=== PATIENT | female | born 1955 | race Caucasian/White ===

== ENCOUNTER 2019-09-11 05:42 | Inpatient (IN) | payer MEDICARE, OTHER ==
[2019-09-06 13:34] LABS: ABSOLUTE BASOPHILS # (AUTO) 0.1 10^3/uL (0.0-0.2); ABSOLUTE EOSINOPHILS # (AUTO) 0.2 10^3/uL (0.0-0.6); ABSOLUTE LYMPHOCYTES (AUTO) 1.5 10^3/uL (0.5-4.7); ABSOLUTE MONOCYTES (AUTO) 0.4 10^3/uL (0.1-1.4); ABSOLUTE NEUT (AUTO) 3.2 10^3/uL (1.7-8.2); BASOPHILS % (AUTO) 1.1 % (0-2); EOSINOPHILS % (AUTO) 3.1 % (0-6); HEMATOCRIT 40.8 % (36.0-47.0); HEMOGLOBIN 13.6 g/dL (12.0-15.5); MEAN CORPUSCULAR HEMOGLOBIN 29.9 pg (27.0-33.4); MEAN CORPUSCULAR HGB CONC 33.4 g/dL (32.0-36.0); MEAN CORPUSCULAR VOLUME 90 fl (80-97); MONOCYTES % (AUTO) 8.3 % (3-13); PLATELET COUNT 350 10^3/uL (150-450); RED BLOOD COUNT 4.56 10^6/uL (3.72-5.28); RED CELL DISTRIBUTION WIDTH 13.1 % (11.5-14.0); SEGMENTED NEUTROPHILS % (AUTO) 59.5 % (42-78); TOTAL CELLS COUNTED % (AUTO) 100 %; WHITE BLOOD COUNT 5.3 10^3/uL (4.0-10.5)
[2019-09-06 13:55] LABS: ANION GAP 8 (5-19); BLOOD UREA NITROGEN 21 mg/dL (7-20); CALCIUM 10.1 mg/dL (8.4-10.2); CARBON DIOXIDE 27 mmol/L (22-30); CHLORIDE 102 mmol/L (98-107); GLUCOSE 88 mg/dL (75-110); POTASSIUM 4.8 mmol/L (3.6-5.0)
[~2019-09-11 05:42] MED LIST: CEFAZOLIN 2 GM/D5W RTU 2 GM/50 ML RTUPB IV PRN; CEFAZOLIN SODIUM 2 GM in DEXTROSE 5%-WATER 100 ML IV PRN; LACTATED RINGERS 1000 ML IV PRN; LIDOCAINE 0.5% INJ-PF (5 MG/ML) 50 ML SDV SUBCUT PRN
[2019-09-11] MEDS ORDERED: CEFAZOLIN INJ 1 GM VIAL ONE (06:45)
[2019-09-11] MEDS ORDERED: CEFAZOLIN 1 GM/D5W RTU 1 GM/50 ML RTUPB IV ONE (06:45)
[2019-09-11] MEDS ORDERED: LIDOCAINE 2% INJ (20 MG/ML) 20 ML MDV ONE (07:00)
[2019-09-11] MEDS ORDERED: BACITRACIN INJ 50,000 UNIT VIAL ONE (07:01)
[2019-09-11] MEDS ORDERED: HEPARIN SOD (PORCINE) 1,000 UNIT/ML 10 ML VIAL ONE (07:01)
[2019-09-11] MEDS ORDERED: BUPIVACAINE INJ/PF LIPOSOME/PF 266 MG/20 ML SDV ONE (07:01)
[2019-09-11] MEDS ORDERED: MINERAL OIL (STERILE) 10 ML VIAL ONE (07:01)
[2019-09-11] MEDS ORDERED: MIDAZOLAM 2 MG/2 ML INJ ONE (07:02)
[2019-09-11] MEDS ORDERED: HYDROMORPHONE HCL INJ/PF 2 MG/ML AMPULE ONE (07:02)
[2019-09-11] MEDS ORDERED: FENTANYL CITRATE INJ/PF 100 MCG/2 ML AMPUL ONE (07:02)
[2019-09-11] MEDS ORDERED: PROPOFOL INJ 200 MG/20 ML VIAL IV ONE (07:03)
[2019-09-11] MEDS ORDERED: DIAZEPAM 5 MG TABLET ONE (07:12)
[2019-09-11] MEDS ORDERED: SCOPOLAMINE HYDROBROMIDE 1.5 MG PATCH.TD72 ONE ×2 (07:13→07:23)
[2019-09-11] MEDS ORDERED: DIAZEPAM 5 MG TABLET PO PRN ×2 (07:17→07:56)
[2019-09-11] MEDS ORDERED: SCOPOLAMINE HYDROBROMIDE 1.5 MG PATCH.TD72 TD PRN (07:18)
[2019-09-11] MEDS ORDERED: PROMETHAZINE HCL INJ 25 MG/1 ML VIAL ONE (07:23)
[2019-09-11] MEDS ORDERED: DIPHENHYDRAMINE HCL 25 MG CAPSULE PO PRN (07:56)
[2019-09-11] MEDS ORDERED: MORPHINE SULFATE 10 MG/ML INJ IV PRN ×2 (07:56→08:43)
[2019-09-11] MEDS ORDERED: MAGNESIUM HYDROXIDE SUSP 30 ML UDCUP PO PRN (07:56)
[2019-09-11] MEDS ORDERED: ONDANSETRON HCL INJ/PF 4 MG/2 ML SDV IV PRN (07:56)
[2019-09-11] MEDS ORDERED: DIPHENHYDRAMINE HCL 50 MG/ML VIAL IV PRN ×2 (07:56→08:43)
[2019-09-11] MEDS ORDERED: PROMETHAZINE HCL 25 MG TABLET PO PRN (07:56)
[2019-09-11] MEDS ORDERED: METHOCARBAMOL 750 MG TABLET PO PRN (07:56)
[2019-09-11] MEDS ORDERED: ACETAMINOPHEN 650 MG SUPP.RECT PR PRN (07:56)
[2019-09-11] MEDS ORDERED: RINGERS SOLUTION,LACTATED 1,000 ML IV PRN (07:56)
[2019-09-11] MEDS ORDERED: PROMETHAZINE HCL INJ 25 MG/1 ML VIAL IM PRN (07:56)
[2019-09-11] MEDS ORDERED: OXYCODONE-ACETAMINOPHEN 5-325 MG TABLET PO PRN (07:56)
[2019-09-11] MEDS ORDERED: GLYCOPYRROLATE 1 MG/5 ML VIAL ONE (08:18)
[2019-09-11] MEDS ORDERED: ROCURONIUM BROMIDE INJ 50 MG/5 ML VIAL IV ONE (08:18)
[2019-09-11] MEDS ORDERED: DEXAMETHASONE SOD PHOSPHATE INJ 4 MG/1 ML VIAL ONE (08:18)
[2019-09-11] MEDS ORDERED: PROPOFOL 2,000 MG/200 ML INFUS..BTL IV ONE (08:18)
[2019-09-11] MEDS ORDERED: ONDANSETRON HCL INJ/PF 4 MG/2 ML SDV ONE (08:18)
[2019-09-11] MEDS ORDERED: PHENYLEPHRINE HCL INJ/PF 10 MG/1 ML SDV ONE (08:18)
[2019-09-11] MEDS ORDERED: SUCCINYLCHOLINE CHLORIDE INJ 200 MG/10 ML VIAL ONE (08:18)
[2019-09-11] MEDS ORDERED: MEPERIDINE HCL/PF INJ 25 MG/1 ML DISP.SYRIN IV PRN (08:43)
[2019-09-11] MEDS ORDERED: FENTANYL CITRATE INJ/PF 100 MCG/2 ML AMPUL IV PRN ×3 (08:43)
[2019-09-11] MEDS ORDERED: METHOCARBAMOL INJ/PF 1000 MG/10 ML SDV ONE (12:58)
--- NOTE | 2019-09-11 13:07 | Operative Report ---
Operative Report DATE OF SURGERY: 09/11/19 PREOPERATIVE DIAGNOSIS: L4-5 and L5-S1 and L3-4 instability and spondylolisthes is. Back pain. 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 Lumbar radiculitis L4-5 and L5-S1 POSTOPERATIVE DIAGNOSIS: L4-5 and L5-S1 and L3-4 instability and spondylolisthesis. Back pain. 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 Lumbar radiculitis L4-5 and L5-S1 OPERATION: L3-4 L4-5 L5-S1 anterior lateral interbody spacer placement robotically assisted and L3-4 L4-5 and L5-S1 robotically assisted posterior fusion and instrumentation. Left iliac crest aspiration through a separate incision for bone marrow aspirate concentration to be used in interbody spaces with allograft. SURGEON: MARLON DEVINE 1ST DIRECTOR TARGETED MARKETING: CECE JOYNER ANESTHESIA: GA ESTIMATED BLOOD LOSS: 200 cc PROCEDURE: Patient is brought into the room placed under general anesthesia received 2 g of Ancef within 1 hour of cut time was placed on the Coy table medial epicondyles and axillary areas are well-padded. Neuro monitoring leads for SSEP and cranial motor testing are placed on the patient as well as a Villegas catheter is placed preoperatively. After appropriate surgical timeout the [employer] robot is utilized and on the right posterior superior iliac spine a pin is placed and attached to the robot. After obtaining registration imaging in the AP and oblique position and verification at L3 5.5 x 45 mm screws x2 and at L4 5.5 x 45 mm screws x2 at L5 6.5 x 45 mm screws x2 and at S1 6.5 x 35 mm screws x2 are inserted using portal incisions on the right and the left at L3 and L4 and L5 and S1 bilaterally. Left iliac crest is aspirated at 2 different sites total of 50 cc of bone marrow aspirate are obtained and concentrated to be used an interbody spacer with the allograft. Attention was then paid to the left sided anterior lateral portal for entry into the disc space which is carried out under navigation guidance upon verification also with x-rays and then stimulation thresholds greater than 17 mA. Upon inserting the portal into the disc space at L3-4 and L4-5 and L5-S1 fluoroscopy was used to verify the position as it did also to verify the screws position. Endplate nathaniel and curettes and brushes are used to carry out a complete discectomy then the verify balloon is inserted to verify good contact with the endplates. Incite cortical fibers/demineralized bone matrix with bone marrow aspirate concentrate are placed anterior in the disc space then the appropriate size mesh spacer is introduced into the interbody. The mesh spacer is soaked in bone marrow aspirate concentrate and is filled with bone graft showing good correction and good containment within the disc space at L3-4 and L4-5 and L5- S1. Upon neuro monitoring testing and cranial motor testing found to be stable then the portal is removed anterior laterally and attention is then paid to the placement of the rods upon using the caliper device the appropriate length rods were determined to be 100 mm rods on the right and on the left those are passed down and locked into position and final tightened. Then the tabs are removed and the portals are irrigated with copious amounts of irrigation and the posterior superior iliac spine pin connected to the robot is removed as well and the deep and superficial tissues were infiltrated with 1.3% Exparel 20 cc mixed with 20 cc of 0.5% bupivacaine plain. The portals are closed using 2-0 Vicryl and then Dermabond and Steri-Strips then 4 x 4's were used to cover the wounds on the right and the left and dressed with coverall tape. Please note that this procedure could not be done without the assistance of Julius Reed working to assist with the placement of the screws positioning of the robot carrying out the aspiration through the left side iliac crest aspiration please also note that the iliac crest aspiration is carried out on the left side through a separate incision. Julius Reed was instrumental throughout this whole process and I could not have done this procedure without his assistance as mentioned above.
--- NOTE | 2019-09-11 13:11 | RADIOLOGY REPORT (SQ) ---
EXAM DESCRIPTION: L SPINE 2 VIEWS; NO CHG FLUORO IMAGES COMPLETED DATE/TIME: 09/11/2019 1:00 pm REASON FOR STUDY: LUMBAR FUSION MULTIPLE LEVELS ASSISTED WITH FLUORO IN OR M54.16 RADICULOPATHY, YAZ MBAR REGION M51.26 OTHER INTERVERTEBRAL DISC DISPLACEMENT, LUMBAR REGION M54.5 LOW BACK PAIN COMPARISON: None. FLUOROSCOPY TIME: 3.9 minutes 3 digital fluoroscopic images saved to PACS. TECHNIQUE: Intra-operative images acquired during surgical procedure to evaluate progress. NUMBER OF IMAGES: 3 digital fluoroscopic images LIMITATIONS: None. FINDINGS: Intra procedural imaging and fluoro during lumbar fusion with hardware. Please see the op erative report for further details IMPRESSION: Intra procedural imaging and fluoro COMMENT: Quality ID [id number]: Final reports for procedures using fluoroscopy that document radiation exp osure indices, or exposure time and number of fluorographic images (if radiation exposure indices are not available) Please consult full operative report of the attending physician for description of the procedure. TECHNICAL DOCUMENTATION: JOB ID: [id number] 2010 [employer]- All Rights Reserved Reading location - IP/workstation name: [email or web address]
--- NOTE | 2019-09-11 13:11 | RADIOLOGY REPORT (SQ) ---
EXAM DESCRIPTION: L SPINE 2 VIEWS; NO CHG FLUORO IMAGES COMPLETED DATE/TIME: 09/11/2019 1:00 pm REASON FOR STUDY: LUMBAR FUSION MULTIPLE LEVELS ASSISTED WITH FLUORO IN OR M54.16 RADICULOPATHY, YAZ MBAR REGION M51.26 OTHER INTERVERTEBRAL DISC DISPLACEMENT, LUMBAR REGION M54.5 LOW BACK PAIN COMPARISON: None. FLUOROSCOPY TIME: 3.9 minutes 3 digital fluoroscopic images saved to PACS. TECHNIQUE: Intra-operative images acquired during surgical procedure to evaluate progress. NUMBER OF IMAGES: 3 digital fluoroscopic images LIMITATIONS: None. FINDINGS: Intra procedural imaging and fluoro during lumbar fusion with hardware. Please see the op erative report for further details IMPRESSION: Intra procedural imaging and fluoro COMMENT: Quality ID [id number]: Final reports for procedures using fluoroscopy that document radiation exp osure indices, or exposure time and number of fluorographic images (if radiation exposure indices are not available) Please consult full operative report of the attending physician for description of the procedure. TECHNICAL DOCUMENTATION: JOB ID: [id number] 2010 [employer]- All Rights Reserved Reading location - IP/workstation name: [email or web address]
[2019-09-11] MEDS ORDERED: CEFAZOLIN 2 GM/D5W RTU 2 GM/50 ML RTUPB IV SCH (14:00)
[2019-09-11] MEDS ORDERED: LEVOTHYROXINE SODIUM 100 MCG PO SCH (14:44)
[2019-09-11] MEDS ORDERED: LACTOBACILLUS RHAMNOSUS GG PO SCH (14:44)
[2019-09-11] MEDS: HYDROCODONE/ACETAMINOPHEN 5-325 MG TABLET PO PRN (17:25)
[2019-09-11] MEDS: CEFAZOLIN SODIUM 2 GM in DEXTROSE 5%-WATER 100 ML IV SCH (17:30)
[2019-09-11] MEDS: ASPIRIN 81 MG TABLET, ENT COATED PO SCH (17:31)
[2019-09-11] MEDS: SENNOSIDES/DOCUSATE 8.6-50 MG 1 EACH TABLET PO SCH (17:31)
[2019-09-11] MEDS: ACETAMINOPHEN 325 MG TABLET PO PRN (23:20)
[2019-09-12] MEDS: CEFAZOLIN SODIUM 2 GM in DEXTROSE 5%-WATER 100 ML IV SCH (02:00)
[2019-09-12] MEDS ORDERED: LEVOTHYROXINE SODIUM 0.1 MG TABLET PO SCH (06:00)
[2019-09-12] MEDS: HYDROCODONE/ACETAMINOPHEN 5-325 MG TABLET PO PRN ×2 (06:13→12:09)
--- NOTE | 2019-09-12 09:23 | PDOC PROGRESS REPORT ---
Subjective Progress Note for:: 09/12/19 Subjective:: Patient is lying in bed at time of exam. She reports that she is comfortable. Reports no problems with bowel or bladder function, reports that she is eating well, and drinking well. She reports that she was able to get up and work with PT with no increase in pain. Reason For Visit: M54.16 RADICULOPATHY, LUMBAR SERGO S/P Lumbar fusion Physical Exam Vital Signs: Temp Pulse Resp BP Pulse Ox 98.2 F 62 16 111/56 L 90 L 09/12/19 07:40 09/12/19 07:40 09/12/19 07:40 09/12/19 07:40 09/12/19 07:40 Intake & Output 09/11/19 09/12/19 09/13/19 06:59 06:59 06:59 Intake Total 2876 Output Total 970 Balance 1906 Weight 61.23 kg 61.23 kg General appearance: PRESENT: no acute distress, well-developed, well-nourished Head exam: PRESENT: atraumatic, normocephalic Eye exam: PRESENT: EOMI, PERRLA. ABSENT: scleral icterus Mouth exam: PRESENT: moist, tongue midline Neck exam: PRESENT: full ROM. ABSENT: carotid bruit, JVD, lymphadenopathy, thyromegaly Cardiovascular exam: PRESENT: RRR. ABSENT: diastolic murmur, rubs, systolic murmur Pulses: PRESENT: normal dorsalis pedis pul, +2 pedal pulses bilateral Vascular exam: PRESENT: normal capillary refill GI/Abdominal exam: PRESENT: soft. ABSENT: distended, guarding, mass, organolmegaly, rebound, tenderness Rectal exam: PRESENT: deferred Musculoskeletal exam: PRESENT: other - Back: Dressing is clean anad dry, normal post operative swelling and tenderness is noted. calves are soft and non-tender. moves legs without pain or difficulty. Neurological exam: PRESENT: alert, awake, oriented to person, oriented to place, oriented to time, oriented to situation, CN II-XII grossly intact. ABSENT: motor sensory deficit Psychiatric exam: PRESENT: appropriate affect, normal mood. ABSENT: homicidal ideation, suicidal ideation Skin exam: PRESENT: dry, intact, warm. ABSENT: cyanosis, rash Results Laboratory Results: 09/06/19 11:49 09/06/19 11:49 Impressions: Fluoroscopy 09/11/19 00:00 IMPRESSION: Intra procedural imaging and fluoro Lumbar Spine X-Ray 09/11/19 00:00 IMPRESSION: Intra procedural imaging and fluoro Assessment & Plan - Diagnosis (1) Fusion of lumbar spine Is this a current diagnosis for this admission?: Yes - Time Time Spent with patient: Less than 15 minutes - Plan Summary Plan Summary: Patient is doing well s/p lumbar fusion pod 1: Progress with PT per protocol and as tolerated Consider D/C home today if cleared Patient is taking oxycodone and Tylenol for pain.
[2019-09-12] MEDS: ASPIRIN 81 MG TABLET, ENT COATED PO SCH (09:59)
[2019-09-12] MEDS: SENNOSIDES/DOCUSATE 8.6-50 MG 1 EACH TABLET PO SCH (09:59)
[2019-09-12] MEDS ORDERED: LACTOBACILLUS ACIDOPHILUS 250 MG TAB PO SCH (10:00)
[2019-09-12 11:50] VITALS: BP 117/56
[2019-09-12] MEDS: ACETAMINOPHEN 325 MG TABLET PO PRN (13:59)
--- NOTE | 2019-09-12 15:00 | PDOC DISCHARGE SUMMARY ---
Impression - Admit/DC Date/PCP Admission Date/Primary Care Provider: 09/11/19 05:42 TORI MALAVE MD Discharge Date: 09/12/19 - D/c sooner than expected d/t pt exceeding recovery expectations and requesting to go home early. - Discharge Diagnosis (1) Lumbar radiculitis Is this a current diagnosis for this admission?: Yes (2) Fusion of lumbar spine Is this a current diagnosis for this admission?: Yes (3) Low back pain Is this a current diagnosis for this admission?: Yes (4) Spondylolisthesis, lumbar region Is this a current diagnosis for this admission?: Yes (5) S/P lumbar fusion Is this a current diagnosis for this admission?: Yes - Assessment Summary: Procedure carried out as planned. w/o complication. Admitted to surgical POD# 0 and had an uneventful admission displaying ability to care for herself after working with PT and nursing. Will be dishcarged today to home in good condition with her . Discharge instruction and spinal percautions reviewed with pt and pt. displayed understanding. Pt to f/u with Dr. Devine in 7-14 days post op with prescheduled appointment. Will begin outpatinet pt in 2-3 weeks, as sheduled with pre made appt. - Additional Information Resuscitation Status: Full Code Discharge Diet: Regular Discharge Activity: Activity As Tolerated - No lifting greater than a half gallon of milk. Please ambulate every 1hr just to get up and improve blood flow/return. No chores., No Lifting/Push/Pulling, No tub bath Referrals: MARLON DEVINE MD [ASSOCIATE] - 09/24/19 1:45 pm Home Medications: Aspirin [Aspir-Low] 81 mg PO DAILY 09/06/19 Calcium Carbonate/Vitamin D3 [Caltrate 600 + D Tablet] 1 each PO BID 09/06/19 Flaxseed Oil [Flax Seed Oil] 720 mg PO BID 09/06/19 Glucosamine/D3/Boswellia Bianka [Osteo Bi-Flex Caplet] 1 each PO BID 09/06/19 Lactobacillus Rhamnosus GG [Culturelle] 1 each PO DAILY 09/06/19 Levothyroxine Sodium [Synthroid] 100 mcg PO DAILY 09/06/19 Ubidecarenone/Vit E Acet [Co Q-10 100 mg Softgel] 1 each PO DAILY 09/06/19 Additional Information: Pt made 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 and resource of office during normal business hours History of Present Illiness History of Present Illness: AUSTIN MARTINEZ is a 64 year old female Physical Exam Vital Signs: Temp Pulse Resp BP Pulse Ox 36.8 C 65 17 117/56 L 91 L 09/12/19 11:33 09/12/19 11:33 09/12/19 11:33 09/12/19 11:33 09/12/19 13:45 Intake & Output 09/11/19 09/12/19 09/13/19 06:59 06:59 06:59 Intake Total 2876 240 Output Total 970 Balance 1906 240 Weight 61.23 kg 61.23 kg Results Laboratory Results: WBC 5.3 10^3/uL (4.0-10.5) 09/06/19 11:49 RBC 4.56 10^6/uL (3.72-5.28) 09/06/19 11:49 Hgb 13.6 g/dL (12.0-15.5) 09/06/19 11:49 Hct 40.8 % (36.0-47.0) 09/06/19 11:49 MCV 90 fl (80-97) 09/06/19 11:49 MCH 29.9 pg (27.0-33.4) 09/06/19 11:49 MCHC 33.4 g/dL (32.0-36.0) 09/06/19 11:49 RDW 13.1 % (11.5-14.0) 09/06/19 11:49 Plt Count 350 10^3/uL (150-450) 09/06/19 11:49 Lymph % (Auto) 28.0 % (13-45) 09/06/19 11:49 Greene % (Auto) 8.3 % (3-13) 09/06/19 11:49 Eos % (Auto) 3.1 % (0-6) 09/06/19 11:49 Baso % (Auto) 1.1 % (0-2) 09/06/19 11:49 Absolute Neuts (auto) 3.2 10^3/uL (1.7-8.2) 09/06/19 11:49 Absolute Lymphs (auto) 1.5 10^3/uL (0.5-4.7) 09/06/19 11:49 Absolute Monos (auto) 0.4 10^3/uL (0.1-1.4) 09/06/19 11:49 Absolute Eos (auto) 0.2 10^3/uL (0.0-0.6) 09/06/19 11:49 Absolute Basos (auto) 0.1 10^3/uL (0.0-0.2) 09/06/19 11:49 Seg Neutrophils % 59.5 % (42-78) 09/06/19 11:49 Sodium 136.9 mmol/L (137-145) L 09/06/19 11:49 Potassium 4.8 mmol/L (3.6-5.0) 09/06/19 11:49 Chloride 102 mmol/L (98-107) 09/06/19 11:49 Carbon Dioxide 27 mmol/L (22-30) 09/06/19 11:49 Anion Gap 8 (5-19) 09/06/19 11:49 BUN 21 mg/dL (7-20) H 09/06/19 11:49 Creatinine 0.76 mg/dL (0.52-1.25) 09/06/19 11:49 Est GFR ( Amer) > 60 (>60) 09/06/19 11:49 Est GFR (MDRD) Non-Af > 60 (>60) 09/06/19 11:49 Glucose 88 mg/dL (75-110) 09/06/19 11:49 Calcium 10.1 mg/dL (8.4-10.2) 09/06/19 11:49 COVID-19 Source NASOPHARYNGEAL 09/06/19 11:31 COVID-19 (AG) NOT DETECTED 09/06/19 11:31 Impressions: Fluoroscopy 09/11/19 00:00 IMPRESSION: Intra procedural imaging and fluoro Lumbar Spine X-Ray 09/11/19 00:00 IMPRESSION: Intra procedural imaging and fluoro Stroke Is this a Stroke Patient?: No Acute Heart Failure - Is this a Heart Failure Patient?: No
[2019-09-13] MEDS ORDERED: BISACODYL 10 MG SUPP.RECT PR PRN (05:00)
[2019-09-13] MEDS ORDERED: BISACODYL 5 MG TABEC PO PRN (05:00)
== END 2019-09-12 15:00 | disposition home or self-care (01) | DRG 460 ==
LOC: INOR 05:42 → 4N 14:10
PROVIDERS: ADMIT Orthopaedic Surgery; ATTEND Orthopaedic Surgery
PROC: 0SG307J Fusion of Lumbosacral Joint with Autologous Tissue Substitute, Posterior Approach, Anterior Column, Open Approach (ICD-10-PCS; 2019-09-11)
PROC: 0ST20ZZ Resection of Lumbar Vertebral Disc, Open Approach (ICD-10-PCS; 2019-09-11)
PROC: 0ST40ZZ Resection of Lumbosacral Disc, Open Approach (ICD-10-PCS; 2019-09-11)
PROC: 07DR3ZZ Extraction of Iliac Bone Marrow, Percutaneous Approach (ICD-10-PCS; 2019-09-11)
PROC: 0SG107J Fusion of 2 or more Lumbar Vertebral Joints with Autologous Tissue Substitute, Posterior Approach, Anterior Column, Open Approach (ICD-10-PCS; principal; 2019-09-11 07:30)
DX: M54.16 Radiculopathy, lumbar region (principal); M51.26 Other intervertebral disc displacement, lumbar region; M54.5 Low back pain; M43.16 Spondylolisthesis, lumbar region; E03.9 Hypothyroidism, unspecified; E78.00 Pure hypercholesterolemia, unspecified; Z79.82 Long term (current) use of aspirin; Z03.818 Encounter for observation for suspected exposure to other biological agents ruled out
CPT/HCPCS: 00630; 36415; 72100; 80048; 85025; 87070; 87635; 94760; 94799; C1898; C9290; C9803; J0330; J0690; J1100; J1170; J1644; J2250; J2370; J2405; J2550; J2704; J2800; J3010; J3490; J7060; J7120; Q9967